=== PATIENT | male | born 1950 | race Caucasian/White ===

== ENCOUNTER 2021-10-31 09:12 | Day surgery (SDC) | payer MEDICARE, SELFPAY ==
[2021-09-27 14:06] VITALS: BMI 29.0
--- NOTE | 2021-10-28 13:06 | HO.ANESPROP2 ---
Documented by User: Seda Ingram NP 10/28/21 13:06 HPI - Anesthesia Eval Consult details Narrative: 71yo M for Colonoscopy [facility] Past Medical History Medical History Depression GERD (gastroesophageal reflux disease) HTN (hypertension) Prostate cancer Renal calculi Surgical History Surgical History H/O colonoscopy History of esophagogastroduodenoscopy (EGD) History of Angie fundoplication Hx of cataract surgery Hx of knee surgery Hx of prostatectomy Social History Social History Patient Tobacco Use Status: Former Tobacco user Tobacco use type: Cigar Cigarette Packs Per Day: 1 Use of substances other than those prescribed or required for medical reasons: No Are you DNR?: No Advance Directives: No (unknown-VM message left) Advance Directives Information Provided: Yes Advance Directives on File: No Meds Allergies Allergy/AdvReac Type Severity Reaction Status Date / Time No Known Allergies Allergy Verified 09/27/21 14:09 Home Medications Medication Instructions Recorded Confirmed Last Taken Type amlodipine 10 mg tablet 10 mg PO DAILY 09/27/21 09/27/21 Unknown History aspirin 81 mg tablet,delayed 81 mg PO DAILY 09/27/21 09/27/21 Unknown History release bupropion HCl 150 mg 24 hr tablet, 150 mg PO QAM 09/27/21 09/27/21 Unknown History extended release chlorthalidone 25 mg tablet 25 mg PO DAILY 09/27/21 09/27/21 Unknown History cholecalciferol (vitamin D3) 25 25 mcg PO DAILY 09/27/21 09/27/21 Unknown History mcg (1,000 unit) capsule (Vitamin D3) loratadine 10 mg tablet 10 mg PO DAILY 09/27/21 09/27/21 Unknown History losartan 100 mg tablet 100 mg PO DAILY 09/27/21 09/27/21 Unknown History metoprolol succinate 100 mg 100 mg PO DAILY 09/27/21 09/27/21 Unknown History tablet,extended release 24 hr multivitamin 1 tab PO DAILY 09/27/21 09/27/21 Unknown History Exam Exam Date and Time: October 28, 2021 1306 Height,Weight and Vital Signs: Height 5 ft 10 in Weight 91.626 kg Assessment and Plan Assessment Anesthesia Assessment: Chart Reviewed Documented by User: Kwame Meek 10/31/21 10:56 PMFSH Past Medical History Medical History Depression GERD (gastroesophageal reflux disease) HTN (hypertension) Prostate cancer Renal calculi Functional capacity: independent ambulation Family History Family history of problems with anesthesia: No Surgical History Surgical History H/O colonoscopy History of esophagogastroduodenoscopy (EGD) History of Angie fundoplication Hx of cataract surgery Hx of knee surgery Hx of prostatectomy History of Problems with Anesthesia: No Social History Social History Patient Tobacco Use Status: Former Tobacco user Tobacco use type: Cigar Cigarette Packs Per Day: 1 Use of substances other than those prescribed or required for medical reasons: No Are you DNR?: No Advance Directives: No (unknown-VM message left) Advance Directives Information Provided: Yes Advance Directives on File: No Meds Allergies Allergy/AdvReac Type Severity Reaction Status Date / Time No Known Allergies Allergy Verified 09/27/21 14:09 Home Medications Medication Instructions Recorded Confirmed Last Taken Type amlodipine 10 mg tablet 10 mg PO DAILY 09/27/21 09/27/21 Unknown History aspirin 81 mg tablet,delayed 81 mg PO DAILY 09/27/21 09/27/21 Unknown History release bupropion HCl 150 mg 24 hr tablet, 150 mg PO QAM 09/27/21 09/27/21 Unknown History extended release chlorthalidone 25 mg tablet 25 mg PO DAILY 09/27/21 09/27/21 Unknown History cholecalciferol (vitamin D3) 25 25 mcg PO DAILY 09/27/21 09/27/21 Unknown History mcg (1,000 unit) capsule (Vitamin D3) loratadine 10 mg tablet 10 mg PO DAILY 09/27/21 09/27/21 Unknown History losartan 100 mg tablet 100 mg PO DAILY 09/27/21 09/27/21 Unknown History metoprolol succinate 100 mg 100 mg PO DAILY 09/27/21 09/27/21 Unknown History tablet,extended release 24 hr multivitamin 1 tab PO DAILY 09/27/21 09/27/21 Unknown History Exam Airway Mallampati Class: III TM Dist: >3cm Neck ROM: Full Loose/Missing/Broken Teeth: Yes (Crowns ) Heart: rrr Lungs: bl breath sounds Assessment and Plan Assessment Anesthesia Assessment: Anesthesia Plan Discussed Final Anesthetic Review Family History of Problems with Anesthesia: No History of Problems with Anesthesia: No NPO: Yes ASA Class: III Final Preanesthetic Review: Vito Risks/Benef Reviewed Patient Risk: Intermediate Procedure Risk: Intermediate Anesthetic Plan Anesthetic Plan: MAC: Disposition: Standard PACU
[2021-10-31 09:47] VITALS: BP 132/85; PULSE 73; RESP 18; TEMP 36.7; O2SAT 100
[2021-10-31] MEDS: Lactated Ringers 1,000 ML 100 ML IVCONT (10:21)
--- NOTE | 2021-10-31 11:49 | PM.OP ---
Brief Operative Note Date of Service: 10/31/21 Pre-op diagnosis: Screening Post-op diagnosis: other (Diverticulosis) Procedure: Colonoscopy to the cecum and TI Surgeon: Дмитрий Crowder Anesthesia: MAC Was an Complex Human Resources Manager used for this Procedure?: No Estimated blood loss (mL): 0 Pathology: none sent Condition: stable Disposition: PACU
[2021-10-31 11:50] VITALS: BP 91/51; PULSE 76; RESP 18; TEMP 37.1; O2SAT 98
[2021-10-31 12:05] VITALS: BP 90/60; PULSE 72; RESP 18; O2SAT 95
[2021-10-31 12:13] VITALS: BP 117/80; PULSE 70; RESP 18; TEMP 37; O2SAT 96
--- NOTE | 2021-10-31 22:22 | OP_ITS ---
SURGEON: Дмитрий Crowder MD INDICATIONS: The patient presents for evaluation of colorectal cancer screening. Full consent has been obtained from him for this, including risks of bleeding and perforation. PREOPERATIVE DIAGNOSIS: Colorectal cancer screening. POSTOPERATIVE DIAGNOSIS: PROCEDURE PERFORMED: Colonoscopy to cecum and terminal ileum. ESTIMATED BLOOD LOSS: COMPLICATIONS: ANESTHESIA: Medication used, monitored anesthesia care. ASSISTANTS: SPECIMENS: POSTOPERATIVE DIAGNOSES: Colorectal cancer screening, sigmoid diverticulosis, and internal hemorrhoids. DESCRIPTION OF PROCEDURE: The patient was placed in the left lateral decubitus position. The digital rectal exam revealed no abnormalities. The Olympus video pediatric colonoscope was entered into the rectum and advanced easily to the cecum. Once in the cecum, I did identify normal-appearing cecal pouch with appendiceal orifice and a normal-appearing ileocecal valve. The terminal ileum was cannulated and appeared normal. The scope was withdrawn back in the colon. The entire cecum and ileocecal valve appeared normal. The scope was slowly withdrawn assessing all mucosal surfaces carefully. Preparation was excellent. I did not visualize any sign of polyps, colitis, nor angiodysplasia. There was a mild amount of sigmoid diverticulosis. In the rectum, scope was retroflexed visualizing internal hemorrhoids, but no other pathology. The rectal mucosa appeared normal. The scope was straightened and withdrawn from the patient. He tolerated the procedure well and was returned to the recovery area in stable condition. IMPRESSION: 1. Sigmoid diverticulosis. 2. Internal hemorrhoids. PLAN: Given his negative exam, 2 negative previous colonoscopies, no family history of colon cancer, and his age, he most likely would not need any further screening colonoscopies since he would be 81 years old 10 years from now. He will see me otherwise on a p.r.n. basis. MD MARTINEZ Du/SHONNA / [id number] JORGE
== END 2021-10-31 12:48 | disposition home or self-care (01) ==
PROVIDERS: Visit Provider Internal Medicine
PROC: 0DJD8ZZ Inspection of Lower Intestinal Tract, Via Natural or Artificial Opening Endoscopic (ICD-10-PCS; CPT 45378; principal; 2021-10-31 10:20)
DX: Z12.11 Encounter for screening for malignant neoplasm of colon (principal); K57.30 Diverticulosis of large intestine without perforation or abscess without bleeding; K64.8 Other hemorrhoids; I10 Essential (primary) hypertension; Z79.899 Other long term (current) drug therapy; Z79.82 Long term (current) use of aspirin; Z87.19 Personal history of other diseases of the digestive system; Z80.0 Family history of malignant neoplasm of digestive organs; Z85.46 Personal history of malignant neoplasm of prostate; Z87.891 Personal history of nicotine dependence
CPT/HCPCS: G0121

== ENCOUNTER 2022-02-10 07:33 | Outpatient (REF) | payer MEDICARE, SELFPAY ==
[2022-02-10 11:06] LABS: MANUAL DIFF FLAG NO
[2022-02-10 11:16] LABS: Basophils Absolute Auto 0.1 X10*3/uL (0.0-0.2); Basophils Percent Auto 0.8 % (0-2); Eosinophils Absolute Auto 0.2 X10*3/uL (0.0-0.4); Eosinophils Percent Auto 2.7 % (0-4); Hematocrit 47.1 % (42.0-52.0); Hemoglobin 15.9 g/dl (14.0-18.0); Imm Gran Abs Auto 0.05 X10*3/uL (0.00-0.03); Imm Gran Pct Auto 0.7 % (0.0-0.4); Lymphocytes Absolute Auto 1.6 X10*3/uL (1.2-4.9); Lymphocytes Percent Auto 21.7 % (20-40); Mean Corpuscular HGB Conc 33.8 g/dl (31.0-36.0); Mean Corpuscular Hemoglobin 29.3 pg (27.0-33.0); Mean Corpuscular Volume 86.9 fL (80.0-98.0); Mean Platelet Volume 12.1 fL (9.4-12.4); Monocytes Absolute Auto 0.6 X10*3/uL (0.1-1.2); Neutrophils Absolute Auto 4.7 x10*3/uL (2.0-8.3); Neutrophils Percent Auto 65.1 % (45-73); Platelet Count 185 X10*3/uL (160-400); Red Blood Count 5.42 X10*6/uL (4.60-5.80); White Blood Count 7.1 X10*3/uL (4.8-10.8)
[2022-02-10 11:48] LABS: Alanine Aminotransferase 23 U/L (0-40); Alkaline Phosphatase 69 U/L (39-117); Anion Gap 11 (12-20); Aspartate Amino Transferase 21 U/L (5-37); Blood Urea Nitrogen 16 mg/dL (9-16); Calcium 9.6 mg/dL (8.4-10.2); Carbon Dioxide 29 mmol/L (22-29); Chloride 103 mmol/L (96-108); Cholesterol 154 mg/dL; Estimated Glomerular Filt Rate > 60; Glucose Fasting 105 mg/dL (60-99); HDL Cholesterol 34 mg/dL; LDL Cholesterol Calculated 61 mg/dl; Potassium 3.4 mmol/L (3.3-5.1); Sodium 140 mmol/L (135-145); Total Protein 6.8 g/dL (6.5-8.0); Triglycerides 297 mg/dL
== END 2022-02-10 07:34 | disposition home or self-care (01) ==
LOC: HO.MANLDS 07:33
PROVIDERS: PCP Internal Medicine; Visit Provider Physician Assistant
DX: Z00.00 Encounter for general adult medical examination without abnormal findings (principal)
CPT/HCPCS: 36415; 80053; 80061; 85025

== ENCOUNTER 2023-03-30 11:48 | Outpatient (REF) | payer MEDICARE, SELFPAY | END 2023-03-30 11:49 | disposition home or self-care (01) | LOC: HO.MANLDS 11:48 | PROVIDERS: Visit Provider Physician Assistant | DX: I10 Essential (primary) hypertension (principal) | CPT/HCPCS: 36415; 80053 ==

== ENCOUNTER 2023-12-11 08:01 | Outpatient (REF) | payer MEDICARE, SELFPAY ==
[2023-12-11 13:12] LABS: MANUAL DIFF FLAG NO
[2023-12-11 13:40] LABS: Basophils Absolute Auto 0.1 X10*3/uL (0.0-0.2); Basophils Percent Auto 1.3 % (0-2); Eosinophils Absolute Auto 0.2 X10*3/uL (0.0-0.4); Eosinophils Percent Auto 2.5 % (0-4); Hematocrit 50.4 % (42.0-52.0); Hemoglobin 16.9 g/dl (14.0-18.0); Imm Gran Abs Auto 0.06 X10*3/uL (0.00-0.03); Imm Gran Pct Auto 0.8 % (0.0-0.4); Lymphocytes Absolute Auto 1.4 X10*3/uL (1.2-4.9); Lymphocytes Percent Auto 17.8 % (20-40); Mean Corpuscular HGB Conc 33.5 g/dl (31.0-36.0); Mean Corpuscular Hemoglobin 30.5 pg (27.0-33.0); Mean Platelet Volume 11.9 fL (9.4-12.4); Monocytes Absolute Auto 0.7 X10*3/uL (0.1-1.2); Monocytes Percent Auto 8.8 % (2-11); Neutrophils Absolute Auto 5.4 x10*3/uL (2.0-8.3); Neutrophils Percent Auto 68.8 % (45-73); Platelet Count 196 X10*3/uL (160-400); Red Blood Count 5.54 X10*6/uL (4.60-5.80); Red Cell Distribution Width 12.9 % (11.0-16.0); White Blood Count 7.9 X10*3/uL (4.8-10.8)
[2023-12-11 13:50] LABS: Estimated Average Glucose 108 mg/dL; Hemoglobin A1c % 5.4 % (<6.0)
[2023-12-11 14:12] LABS: Alanine Aminotransferase 28 U/L (0-40); Alkaline Phosphatase 79 U/L (39-117); Anion Gap 12 (12-20); Aspartate Amino Transferase 22 U/L (5-37); Bilirubin Total 0.8 mg/dL (0.0-1.0); Blood Urea Nitrogen 15 mg/dL (9-16); Calcium 9.1 mg/dL (8.4-10.2); Carbon Dioxide 29 mmol/L (22-29); Chloride 105 mmol/L (96-108); Cholesterol 129 mg/dL (<200); Estimated Glomerular Filt Rate > 60; Glucose Random 92 mg/dL (60-115); HDL Cholesterol 34 mg/dL (>40); LDL Cholesterol Calculated 56 mg/dL (<100); Potassium 3.4 mmol/L (3.3-5.1); Sodium 143 mmol/L (135-145); Total Protein 6.8 g/dL (6.5-8.0); Triglycerides 197 mg/dL (<150)
[2023-12-11 14:20] LABS: Prostate Specific Antigen < 0.10 ng/mL (<0.05-4.0)
== END 2023-12-11 08:02 | disposition home or self-care (01) ==
LOC: HO.MANLDS 08:01
PROVIDERS: Visit Provider Physician Assistant
DX: Z00.00 Encounter for general adult medical examination without abnormal findings (principal); Z12.5 Encounter for screening for malignant neoplasm of prostate; Z13.6 Encounter for screening for cardiovascular disorders
CPT/HCPCS: 36415; 80053; 80061; 83036; 84153; 85025